=== PATIENT | female | born 2005 | race Caucasian/White ===

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

== ENCOUNTER → 2025-03-11 23:59 | Outpatient (BNV) | payer MEDICAID, SELFPAY ==
--- NOTE | 2025-03-12 10:48 | A.OFFVIS_ITS ---
Intake Visit Reasons: follow up Allergies nut - unspecified (nut) Allergy (Severe, Unverified 03/12/25 11:21) throat gets tight lynne Allergy (Unknown, Verified 01/29/24 13:32) HIVES coconut (COCONUT) Allergy (Unknown, Verified 01/29/24 13:32) HIVES HPI Comments Details: New patient to me. Student coming for orientation - she was seen by another BORING MACHINE SET UP OPERATOR and treated for allergies - ear pain. she is and has not followed up to see if she can take the benadryl nor claritin that was suggeted. she states that she is feeling better than she was but it is still hurting. we talked about allergies: also allergic to cherries/peanuts - throat closes, and some dogs and cats. (itchy eyes) PCP: [facility] - she is supposed toget call to transfer to adult medicine section but she has been seen by pediatrics there. OB/gyne (she is 16 weeks preg) [address] [facility] in [place]. Medications: vitamins - no iron. she was given meds for nausea but doesn't know what they were and didn't take them - not oral dis pills but swallow and that would make her vomit PMH: - due 08/20/25 -she feels ok now -though early in preg she was very nauseous - nothing was given to help her. asthma, ezcema (not currently on either) though she wonders about the other day - she felt herself wheezing after walking a long distnace - she doesn't have a pump. she also needs an epipen Mood: feels ok at moment but she feels she struggles w/ depression - this seems to be only circulating around mother, but she is moving in w/ uncle today. so she will get to see if her mood improves - she feels that she gets angry a lot. when not around mother - I'm a different person before she was on meds for 'anger' - they made her sleepy - had many therapists but they would change all the time so she didn't find it helpful - she wonders about trying meds agin - sh e will monitor herself during and if it gets bad she will talk to me or to her sailboat captain Substances: etoh-not really, weed - before she would smoke all day 10x day - it helped herstay calmand manage anger - now she is not using and that isn't easy but she distracts herself w/ phone or sleeping. [facility]: mental health and ETOH issues. she is not in contact w/ her father - he 'abandoned me when I was 5 saw him when she was 13 - but g/f didn't want her there and he sent he back home. she hasn't spoken to him since. mother and she have a challenging relationship and it is not healthy for her (her words) states that 'the only people there for me are my gramma, sister, aunt and uncle . mom kicked her out and she will live w/ uncle in his ne PLAN: 1) refill albuterol [facility] epipen [facility] [address]) 2)rachel - we met - she will meet w/ student and connect /w multicultural practice for therapy- seems like it would be a good match 3) mood - she will (and we will) continue to assess (as she feels a bit unstable) for change in mood and will discuss medicaitons as needed - she will also use her sailboat captain for this [facility] Medical History (Updated 03/12/25 @ 11:19 by JARRETT Friend) Depression, major, recurrent, moderate Multiple allergies History of asthma Asthma No known health problems Family History Mother No problems noted. Sister No problems noted. Sister No problems noted. Sister No problems noted. Sister No problems noted. Brother No problems noted. Brother No problems noted. Brother No problems noted. Social History Alcohol intake: never Substance Use Type: Marijuana and Caffiene Assessment & Plan Assessment & Plan (1) Counseling and coordination of care: Code(s): Z71.89 - Other specified counseling Category: Medical (2) History of asthma: Code(s): Z87.09 - Personal history of other diseases of the respiratory system Category: Medical (3) Multiple allergies: Code(s): Z88.9 - Allergy status to unspecified drugs, medicaments and biological subs tances Category: Medical (4) and not yet delivered in second trimester: Code(s): Z34.92 - Encounter for supervision of normal , unspecified, second trimester Category: Medical (5) Depression, major, recurrent, moderate: Code(s): F33.1 - Major depressive disorder, recurrent, moderate Category: Medical Plan PLAN: 1) refill al[facility]erol [facility] epipen [facility] [address]) 2)rachel - we met - she will meet w/ student and connect /w multicultural practice for therapy- seems like it would be a good match 3) mood - she will (and we will) continue to assess (as she feels a bit unstable) for change in mood and will discuss medicaitons as needed - she will also use her sailboat captain for this ( currently states she is feeling 'ok' but her history seems unstable - but we'll watch and support) Medications: New epinephrine (EpiPen 2-Sylvester) not to exceed 6 doses per episode 0.3 mg (0.3 mL) IM Q10M PRN 2 ea 0RF anaphylaxis albuterol sulfate 90 mcg/actuation (Ventolin HFA) 1 - 2 puffs inhalation Q4-6H PRN 6.7 grams 1RF shortness of breath or wheezing Discontinued amoxicillin Discontinued Reason: Patient Completed Course 500 mg (6.25 mL) PO BID 10 days 125 mL 0RF Coding Level of Care Code New Pt Level 5 (67349) Diagnoses Counseling and coordination of care Z71.89 History of asthma Z87.09 Multiple allergies Z88.9 and not yet delivered in second trimester Z34.92 Depression, major, recurrent, moderate F33.1 Additional Codes PHQ-9 - 88783 - PHQ-9 Billing: Yes ([id number]) Time Spent (min) 60 Comment extensive counseling and coord care - vulnerable young woman PHQ-9 Over the last 2 weeks, how often have you been bothered by any of the following problems? 1. Little interest or pleasure in doing things: several days 2. Feeling down, depressed, or hopeless: nearly every day 3. Trouble falling or staying asleep, or sleeping too much: nearly every day 4. Feeling tired or having little energy: more than half the days 5. Poor appetite or overeating: several days 6. Feeling bad about yourself - or that you are a failure or have let yourself or your family down: more than half the days 7. Trouble concentrating on things, such as reading the newspaper or watching television: more than half the days 8. Moving or speaking so slowly that other people could have noticed. Or the opposite - being so fidgety or restless that you have been moving around a lot more than usual: not at all 9. Thoughts that you would be better off or of hurting yourself in some way: not at all Total score: 14 Depression Screening Interpretation: Positive (it is unclear if this is situational at this time - will get her connected to therapy and she is changing living situation) Depression Screening Follow-up: Existing condition Depression Screening Done: Yes 11030 - PHQ-9 Billing: Yes Source: Developed by Drs. Beau Camarena, Radha Underwood, Lamberto Quispe and colleagues, with an educational alexander from [employer]. CRAFFT Screening Tool PART A: In the PAST 12 MONTHS, did you: Drink any alcohol (more than few sips)? (Do not count sips of alcohol taken during family or nondenominational events.): No Smoke any marijuana or hashish?: No Use anything else to get high? (includes illegal drugs, over the counter/prescription drugs, or things that you sniff/wayne?): No
== END ==
PROVIDERS: Visit Provider Nurse Practitioner Family
DX: Z71.89 Other specified counseling (principal); Z87.09 Personal history of other diseases of the respiratory system; Z88.9 Allergy status to unspecified drugs, medicaments and biological substances; Z34.92 Encounter for supervision of normal pregnancy, unspecified, second trimester; F33.1 Major depressive disorder, recurrent, moderate
CPT/HCPCS: 96127; 99205